=== PATIENT | male | born 1960 | race Caucasian/White ===

== ENCOUNTER 2017-12-24 07:50 | Inpatient (IN) | payer OTHER, MEDICARE ==
[~2017-12-24] VITALS: Ht 170.2 cm; Wt 62.0 kg
[~2017-12-24 07:50] MED LIST: Veetids 500500 MG PO
[2017-12-24 08:33] LABS: BASOPHILS PERCENT AUTO 0 % (0-2); EOSINOPHILS ABSOLUTE AUTO 0.02 K/mm3 (0.00-0.68); EOSINOPHILS PERCENT AUTO 0 % (0-6); IMMATURE GRAN ABSOLUTE AUTO 0.05 K/mm3 (0.00-0.10); IMMATURE GRAN PERCENT AUTO 1 % (0-1); LYMPHOCYTES ABSOLUTE AUTO 1.22 K/mm3 (0.84-5.20); LYMPHOCYTES PERCENT AUTO 13 % (21-46); MONOCYTES ABSOLUTE AUTO 0.84 K/mm3 (0.16-1.47); MONOCYTES PERCENT AUTO 9 % (4-13); Mean Platelet Volume 8.4 fL (9.1-12.4); NEUTROPHILS ABSOLUTE AUTO 7.41 K/mm3 (1.96-9.15); NEUTROPHILS PERCENT AUTO 78 % (41-73); Platelet Count 188 K/mm3 (150-400); RDW Coefficient Variation 10.4 % (11.7-14.2); RDW Standard Deviation 34.2 fL (35.1-46.3); Red Blood Cell Count 2.97 M/mm3 (4.30-5.90); White Blood Cell Count 9.54 K/mm3 (4.00-11.30)
[2017-12-24 08:54] LABS: Magnesium, Blood 1.3 mg/dL (1.6-2.4)
[2017-12-24 08:57] LABS: Alanine Aminotransfer (ALT/SGP 36 U/L (12-78); Albumin, Blood 2.8 g/dL (3.4-5.0); Albumin/Globulin Ratio 0.9 (0.8-1.8); Alk Phos 83 U/L (50-136); Anion Gap 11 mmol/L (6-16); Aspartate Aminotrans (AST/SGOT 56 U/L (12-37); Bilirubin, Total 1.3 mg/dL (0.1-1.0); Blood Urea Nitrogen 8 mg/dL (8-24); Bun/Creatinine Ratio 11.1 (12.0-20.0); CO2, Blood 25 mmol/L (21-32); Calcium, Blood 8.2 mg/dL (8.5-10.1); Chloride, Blood 73 mmol/L (98-108); Creatinine, Blood 0.72 mg/dL (0.60-1.20); Globulin, Blood 3.1 g/dL (2.2-4.0); Glomerular Filtration Rate >60 (60-); Glucose, Blood 92 mg/dL (70-99); Phosphorus, Blood 2.2 mg/dL (2.5-4.9); Potassium, Blood 1.9 mmol/L (3.5-5.5); Sodium, Blood 109 mmol/L (136-145); Total Protein, Blood 5.9 g/dL (6.4-8.2)
[2017-12-24 08:59] LABS: Hemoglobin 10.4 g/dL (13.5-17.5); Mean Corpuscular Volume 111 fL (80-100)
[2017-12-24 09:00] LABS: Mean Corpuscular HGB Conc 31.5 g/dL (31.5-36.5)
[2017-12-24 13:08] LABS: Anion Gap 11 mmol/L (6-16); Blood Urea Nitrogen 7 mg/dL (8-24); Bun/Creatinine Ratio 9.9 (12.0-20.0); CO2, Blood 24 mmol/L (21-32); Chloride, Blood 80 mmol/L (98-108); Creatinine, Blood 0.71 mg/dL (0.60-1.20); Glomerular Filtration Rate >60 (60-); Glucose, Blood 81 mg/dL (70-99); Potassium, Blood 2.3 mmol/L (3.5-5.5); Sodium, Blood 115 mmol/L (136-145)
[2017-12-24] MEDS ORDERED: AMLO5 PO (14:21)
[2017-12-24] MEDS ORDERED: HYDCHL25 PO (14:22)
[2017-12-24] MEDS ORDERED: LOSA50 PO (14:22)
[2017-12-24] MEDS ORDERED: TRAM50 PO (14:23)
[2017-12-24 16:58] LABS: Magnesium, Blood 1.7 mg/dL (1.6-2.4)
[2017-12-24 16:59] LABS: Anion Gap 11 mmol/L (6-16); Blood Urea Nitrogen 8 mg/dL (8-24); Bun/Creatinine Ratio 11.7 (12.0-20.0); CO2, Blood 22 mmol/L (21-32); Calcium, Blood 7.3 mg/dL (8.5-10.1); Chloride, Blood 87 mmol/L (98-108); Creatinine, Blood 0.68 mg/dL (0.60-1.20); Glomerular Filtration Rate >60 (60-); Glucose, Blood 84 mg/dL (70-99); Phosphorus, Blood 3.9 mg/dL (2.5-4.9); Sodium, Blood 120 mmol/L (136-145)
[2017-12-24 21:03] LABS: Anion Gap 11 mmol/L (6-16); Blood Urea Nitrogen 10 mg/dL (8-24); CO2, Blood 19 mmol/L (21-32); Calcium, Blood 7.6 mg/dL (8.5-10.1); Chloride, Blood 90 mmol/L (98-108); Creatinine, Blood 0.77 mg/dL (0.60-1.20); Glomerular Filtration Rate >60 (60-); Glucose, Blood 90 mg/dL (70-99); Potassium, Blood 3.3 mmol/L (3.5-5.5); Sodium, Blood 120 mmol/L (136-145)
[2017-12-25 00:52] LABS: Anion Gap 8 mmol/L (6-16); Blood Urea Nitrogen 8 mg/dL (8-24); Bun/Creatinine Ratio 10.7 (12.0-20.0); CO2, Blood 20 mmol/L (21-32); Calcium, Blood 7.1 mg/dL (8.5-10.1); Chloride, Blood 96 mmol/L (98-108); Creatinine, Blood 0.75 mg/dL (0.60-1.20); Glomerular Filtration Rate >60 (60-); Glucose, Blood 83 mg/dL (70-99); Potassium, Blood 3.1 mmol/L (3.5-5.5); Sodium, Blood 124 mmol/L (136-145)
[2017-12-25 05:16] LABS: BASOPHILS ABSOLUTE AUTO 0.01 K/mm3 (0.00-0.23); BASOPHILS PERCENT AUTO 0 % (0-2); EOSINOPHILS ABSOLUTE AUTO 0.02 K/mm3 (0.00-0.68); EOSINOPHILS PERCENT AUTO 0 % (0-6); Hematocrit 24.9 % (37.0-53.0); Hemoglobin 9.2 g/dL (13.5-17.5); IMMATURE GRAN ABSOLUTE AUTO 0.02 K/mm3 (0.00-0.10); IMMATURE GRAN PERCENT AUTO 0 % (0-1); LYMPHOCYTES ABSOLUTE AUTO 0.97 K/mm3 (0.84-5.20); LYMPHOCYTES PERCENT AUTO 14 % (21-46); MONOCYTES ABSOLUTE AUTO 0.62 K/mm3 (0.16-1.47); MONOCYTES PERCENT AUTO 9 % (4-13); Mean Corpuscular HGB 34.8 pg (26.0-34.0); Mean Corpuscular HGB Conc 36.9 g/dL (31.5-36.5); Mean Platelet Volume 8.8 fL (9.1-12.4); NEUTROPHILS ABSOLUTE AUTO 5.15 K/mm3 (1.96-9.15); NEUTROPHILS PERCENT AUTO 76 % (41-73); Platelet Count 188 K/mm3 (150-400); RDW Coefficient Variation 10.7 % (11.7-14.2); RDW Standard Deviation 36.9 fL (35.1-46.3); Red Blood Cell Count 2.64 M/mm3 (4.30-5.90); White Blood Cell Count 6.79 K/mm3 (4.00-11.30)
[2017-12-25 05:20] LABS: Mean Corpuscular Volume 94 fL (80-100)
[2017-12-25 05:34] LABS: Anion Gap 9 mmol/L (6-16); Blood Urea Nitrogen 8 mg/dL (8-24); Bun/Creatinine Ratio 10.7 (12.0-20.0); CO2, Blood 19 mmol/L (21-32); Calcium, Blood 7.1 mg/dL (8.5-10.1); Chloride, Blood 97 mmol/L (98-108); Creatinine, Blood 0.75 mg/dL (0.60-1.20); Glomerular Filtration Rate >60 (60-); Glucose, Blood 81 mg/dL (70-99); Phosphorus, Blood 1.7 mg/dL (2.5-4.9); Potassium, Blood 3.1 mmol/L (3.5-5.5); Sodium, Blood 125 mmol/L (136-145)
[2017-12-25 07:55] LABS: IMMATURE RETIC FRACTION 1.8 % (2.3-16.0); RETIC HGB EQUIVALENT 38.1 pg (28.20-36.60); RETICULOCYTE COUNT PERCENT 1.51 % (0.50-2.50)
[2017-12-25 08:36] LABS: Percent Saturation 40.3 % (20.0-50.0)
[2017-12-25 16:21] LABS: Anion Gap 9 mmol/L (6-16); Blood Urea Nitrogen 8 mg/dL (8-24); Bun/Creatinine Ratio 10.9 (12.0-20.0); CO2, Blood 19 mmol/L (21-32); Calcium, Blood 6.9 mg/dL (8.5-10.1); Chloride, Blood 99 mmol/L (98-108); Creatinine, Blood 0.74 mg/dL (0.60-1.20); Glomerular Filtration Rate >60 (60-); Glucose, Blood 75 mg/dL (70-99); Magnesium, Blood 1.4 mg/dL (1.6-2.4); Potassium, Blood 4.3 mmol/L (3.5-5.5); Sodium, Blood 127 mmol/L (136-145)
[2017-12-26 07:11] LABS: Hematocrit 25.6 % (37.0-53.0); Hemoglobin 9.2 g/dL (13.5-17.5)
[2017-12-26 07:29] LABS: Anion Gap 9 mmol/L (6-16); Blood Urea Nitrogen 6 mg/dL (8-24); Bun/Creatinine Ratio 8.6 (12.0-20.0); CO2, Blood 21 mmol/L (21-32); Calcium, Blood 7.3 mg/dL (8.5-10.1); Chloride, Blood 99 mmol/L (98-108); Glomerular Filtration Rate >60 (60-); Glucose, Blood 73 mg/dL (70-99); Magnesium, Blood 1.5 mg/dL (1.6-2.4); Phosphorus, Blood 1.8 mg/dL (2.5-4.9); Potassium, Blood 3.8 mmol/L (3.5-5.5); Sodium, Blood 129 mmol/L (136-145)
[2017-12-27 06:55] LABS: Anion Gap 9 mmol/L (6-16); Blood Urea Nitrogen 5 mg/dL (8-24); Bun/Creatinine Ratio 7.1 (12.0-20.0); CO2, Blood 24 mmol/L (21-32); Calcium, Blood 7.7 mg/dL (8.5-10.1); Chloride, Blood 93 mmol/L (98-108); Creatinine, Blood 0.71 mg/dL (0.60-1.20); Glomerular Filtration Rate >60 (60-); Glucose, Blood 85 mg/dL (70-99); Potassium, Blood 3.8 mmol/L (3.5-5.5); Sodium, Blood 126 mmol/L (136-145)
[2017-12-28 06:58] LABS: Anion Gap 8 mmol/L (6-16); Blood Urea Nitrogen 7 mg/dL (8-24); Bun/Creatinine Ratio 9.2 (12.0-20.0); CO2, Blood 26 mmol/L (21-32); Calcium, Blood 7.9 mg/dL (8.5-10.1); Chloride, Blood 94 mmol/L (98-108); Creatinine, Blood 0.76 mg/dL (0.60-1.20); Glomerular Filtration Rate >60 (60-); Glucose, Blood 77 mg/dL (70-99); Magnesium, Blood 1.5 mg/dL (1.6-2.4); Phosphorus, Blood 3.5 mg/dL (2.5-4.9); Potassium, Blood 4.1 mmol/L (3.5-5.5); Sodium, Blood 128 mmol/L (136-145)
[2017-12-28] MEDS ORDERED: CITA20 PO (08:42)
[2017-12-28] MEDS ORDERED: SODCHL1 PO (08:43)
[2017-12-28] MEDS ORDERED: MAGOXI400 PO (08:43)
== END 2017-12-28 11:14 | disposition home or self-care (01) | DRG 641 ==
LOC: DELPENDDIS → ER 07:50 → MEDS 10:10 → ICUW 10:10 → ICUE 11:28 → MEDS 11:32 → ICUE 12-25 08:05 → MEDS 12-25 08:56 → ENPENDDIS 12-28 08:00 → MEDS 12-28 11:14
PROVIDERS: Emergency Medicine; Hospitalist
DX: E87.1 Hypo-osmolality and hyponatremia (principal); F41.9 Anxiety disorder, unspecified; D64.9 Anemia, unspecified; E83.39 Other disorders of phosphorus metabolism; E83.42 Hypomagnesemia; E83.51 Hypocalcemia; E87.6 Hypokalemia; G47.9 Sleep disorder, unspecified; I10 Essential (primary) hypertension; F17.210 Nicotine dependence, cigarettes, uncomplicated
CPT/HCPCS: 36415; 36569; 80048; 80053; 82607; 82728; 82746; 82947; 83540; 83550; 83735; 84100; 85014; 85018; 85025; 85045; 87493; 93005; 93010; 96365; 96366; 96368; 99285-25; C1751; J1650; J3475; J3480; J7030; J7040; J7060

== ENCOUNTER 2021-01-10 09:48 | Inpatient (IN) | payer OTHER ==
[~2021-01-10] VITALS: Ht 170.2 cm; Wt 69.8 kg
[~2021-01-10 09:48] MED LIST changes: +AMLO5 PO; +CITA20 PO; +HYDCHL25 PO; +LOSA50 PO; +MAGOXI400 PO; +SODCHL1 PO; +TRAM50 PO
[2021-01-10 10:09] LABS: BASOPHILS ABSOLUTE AUTO 0.01 K/mm3 (0.00-0.23); BASOPHILS PERCENT AUTO 0 % (0-2); EOSINOPHILS ABSOLUTE AUTO 0.03 K/mm3 (0.00-0.68); EOSINOPHILS PERCENT AUTO 0 % (0-6); Hematocrit 28.7 % (37.0-53.0); Hemoglobin 9.9 g/dL (13.5-17.5); IMMATURE GRAN ABSOLUTE AUTO 0.03 K/mm3 (0.00-0.10); IMMATURE GRAN PERCENT AUTO 0 % (0-1); LYMPHOCYTES ABSOLUTE AUTO 1.52 K/mm3 (0.84-5.20); LYMPHOCYTES PERCENT AUTO 16 % (21-46); MONOCYTES ABSOLUTE AUTO 0.67 K/mm3 (0.16-1.47); MONOCYTES PERCENT AUTO 7 % (4-13); Mean Corpuscular HGB 33.2 pg (26.0-34.0); Mean Corpuscular HGB Conc 34.5 g/dL (31.5-36.5); Mean Corpuscular Volume 96 fL (80-100); Mean Platelet Volume 9.1 fL (9.1-12.4); NEUTROPHILS ABSOLUTE AUTO 7.33 K/mm3 (1.96-9.15); NEUTROPHILS PERCENT AUTO 77 % (41-73); Platelet Count 206 K/mm3 (150-400); RDW Coefficient Variation 18.6 % (11.7-14.2); RDW Standard Deviation 65.7 fL (35.1-46.3); Red Blood Cell Count 2.98 M/mm3 (4.30-5.90); White Blood Cell Count 9.59 K/mm3 (4.00-11.30)
[2021-01-10 10:39] LABS: Alanine Aminotransfer (ALT/SGP 17 U/L (12-78); Albumin, Blood 1.4 g/dL (3.4-5.0); Albumin/Globulin Ratio 0.3 (0.8-1.8); Alk Phos 118 U/L (50-136); Anion Gap 8 mmol/L (6-16); Aspartate Aminotrans (AST/SGOT 27 U/L (12-37); Bilirubin, Total 1.3 mg/dL (0.1-1.0); Blood Urea Nitrogen 16 mg/dL (8-24); Bun/Creatinine Ratio 14.2 (12.0-20.0); CO2, Blood 35 mmol/L (21-32); Calcium, Blood 6.9 mg/dL (8.5-10.1); Chloride, Blood 86 mmol/L (98-108); Creatinine, Blood 1.13 mg/dL (0.60-1.20); Globulin, Blood 4.5 g/dL (2.2-4.0); Glomerular Filtration Rate >60 (60-); Glucose, Blood 61 mg/dL (70-99); Potassium, Blood 2.7 mmol/L (3.5-5.5); Sodium, Blood 129 mmol/L (136-145); Total Protein, Blood 5.9 g/dL (6.4-8.2)
[2021-01-10 11:11] LABS: Thyroid Stimulating Hormone 6.94 uIU/mL (0.360-4.800)
[2021-01-10 11:20] LABS: Ethanol (Alcohol), Blood, Med <3 mg/dL; Magnesium, Blood 1.4 mg/dL (1.6-2.4)
[2021-01-10 14:20] LABS: Source, Urine Clean Catch
[2021-01-10 14:25] LABS: Appearance, Urine Hazy (Clear); Bilirubin, Urine Neg (Neg); Blood, Urine 3+ (Neg); Color, Urine Amber (P-Yellow); Glucose Qualitative, Urine Neg (Neg); Ketones, Urine 1+ (Neg); Leukocyte Esterase, Urine 3+ (Neg); Nitrite, Urine Neg (Neg); Protein, Urine 2+ (Neg); Urobilinogen, Urine 3+ (Normal); pH, Urine 6.5 (5.0-8.0)
[2021-01-10 14:32] LABS: Bacteria Many /hpf; Squamous Epithelial Cells Rare /hpf (Few); White Blood Cells, Urine 50-100 /hpf (0-5)
[2021-01-10 14:37] LABS: U Amphetamine Screen Not Detected; U Barbituate Screen Not Detected; U Benzodiazapine Screen Not Detected; U Buprenorphine Screen Not Detected; U Cannabinoids Screen DETECTED; U Cocaine Screen Not Detected; U Methadone Screen Not Detected; U Methamphetamine Screen Not Detected; U Opiates Screen Not Detected; U Oxycodone Screen Not Detected; U Phencyclidine Screen Not Detected; U Propoxyphene Screen Not Detected
[2021-01-10 15:24] LABS: SARS-Cov-2 (COVID-19) PCR, MMC NEGATIVE (NEGATIVE)
[2021-01-10 19:01] LABS: International Normalized Ratio 1.74; Prothrombin Time Results 17.6 Sec (9.7-11.5)
--- NOTE | 2021-01-10 19:45 | NUR ---
PT ARRIVAL PT ARRIVES VIA GURNEY FROM ER. WHILE MOVING TO OUR GURNEY, PT BEGAN MAKING PURPOSEFUL MOVEMENTS WITH UPPER EXTREMITIES TOWARD ETT. PT DID NOT OPEN EYES. PT NOT FOLLOWING VERBAL COMMANDS OR REDIRECTION. BILAT SOFT WRIST RESTRAINTS APPLIED FOR SAFETY. PT IS VERY PALE AND COOL TO TOUCH. VERSED AND NS INFUSING. PROPOFOL STARTED FOR SEDATION. PT REMAINS INTUBATED WITH VENT SETTINGS 16/400/5/90% WITH SPO2 >95%. OGT REPLACED DUE TO KINK SHOWN BY XRAY. CONNECTED TO INT SUCTION, BRIGHT RED DRAINAGE NOTED. BOWEL TONES ARE ACTIVE. GRIER REMAINS IN PLACE. FAINT RADIAL PULSES, DOPPLER PEDAL PULSES. PLAN FOR FISH FLIPPER TO TAKE PT FOR IVC FILTER.
[2021-01-10 20:47] LABS: CPK Creatine Kinase 81 U/L (39-308); Troponin I 0.045 ng/mL (0.000-0.040)
[2021-01-10 20:59] LABS: Base Excess Venous 12.8 mmol/L; Bicarbonate Venous 35.2 mmol/L (24.0-30.0); PCO2 Venous 49.2 mmHg (38-42); PO2 Venous 51.3 mmHg (38-42); pH Blood Venous 7.48 (7.34-7.37)
[2021-01-10 21:38] LABS: Anion Gap 12 mmol/L (6-16); Blood Urea Nitrogen 15 mg/dL (8-24); Bun/Creatinine Ratio 13.5 (12.0-20.0); CO2, Blood 31 mmol/L (21-32); Calcium, Blood 7.1 mg/dL (8.5-10.1); Chloride, Blood 88 mmol/L (98-108); Creatinine, Blood 1.11 mg/dL (0.60-1.20); Glomerular Filtration Rate >60 (60-); Glucose, Blood 141 mg/dL (70-99); Potassium, Blood 2.5 mmol/L (3.5-5.5); Sodium, Blood 131 mmol/L (136-145)
--- NOTE | 2021-01-11 00:10 | NUR ---
2300: SEWING MACHINE OPERATOR PLASTIC ZIPPER TEAM ARRIVES TO TAKE PT. 2350: PT BACK TO ROOM. PER SEWING MACHINE OPERATOR PLASTIC ZIPPER TEAM PT TOLERATED PROCEDURE WELL. INSERTION SITE R GROIN. TRANSPARENT DRESSING WITH OUTLINED DRAINAGE IN PLACE. SURROUNDING AREA SOFT TO PALPATION.
[2021-01-11 00:38] LABS: Hematocrit 20.5 % (37.0-53.0); Hemoglobin 6.9 g/dL (13.5-17.5)
[2021-01-11 03:30] LABS: BASOPHILS PERCENT AUTO 0 % (0-2); EOSINOPHILS ABSOLUTE AUTO 0.01 K/mm3 (0.00-0.68); EOSINOPHILS PERCENT AUTO 0 % (0-6); Hematocrit 20.3 % (37.0-53.0); IMMATURE GRAN ABSOLUTE AUTO 0.05 K/mm3 (0.00-0.10); IMMATURE GRAN PERCENT AUTO 1 % (0-1); LYMPHOCYTES ABSOLUTE AUTO 0.96 K/mm3 (0.84-5.20); LYMPHOCYTES PERCENT AUTO 9 % (21-46); MONOCYTES ABSOLUTE AUTO 0.45 K/mm3 (0.16-1.47); MONOCYTES PERCENT AUTO 4 % (4-13); Mean Corpuscular HGB 33.2 pg (26.0-34.0); Mean Corpuscular HGB Conc 34.5 g/dL (31.5-36.5); Mean Corpuscular Volume 96 fL (80-100); NEUTROPHILS ABSOLUTE AUTO 8.69 K/mm3 (1.96-9.15); NEUTROPHILS PERCENT AUTO 86 % (41-73); Platelet Count 113 K/mm3 (150-400); RDW Coefficient Variation 18.5 % (11.7-14.2); RDW Standard Deviation 64.4 fL (35.1-46.3); Red Blood Cell Count 2.11 M/mm3 (4.30-5.90); White Blood Cell Count 10.16 K/mm3 (4.00-11.30)
[2021-01-11 03:48] LABS: Alanine Aminotransfer (ALT/SGP 13 U/L (12-78); Albumin, Blood 2.1 g/dL (3.4-5.0); Albumin/Globulin Ratio 0.7 (0.8-1.8); Alk Phos 80 U/L (50-136); Anion Gap 4 mmol/L (6-16); Aspartate Aminotrans (AST/SGOT 22 U/L (12-37); Bilirubin, Total 1.4 mg/dL (0.1-1.0); Blood Urea Nitrogen 14 mg/dL (8-24); Bun/Creatinine Ratio 14.3 (12.0-20.0); CO2, Blood 35 mmol/L (21-32); Calcium, Blood 7.2 mg/dL (8.5-10.1); Chloride, Blood 91 mmol/L (98-108); Creatinine, Blood 0.98 mg/dL (0.60-1.20); Globulin, Blood 3.1 g/dL (2.2-4.0); Glomerular Filtration Rate >60 (60-); Glucose, Blood 170 mg/dL (70-99); Sodium, Blood 130 mmol/L (136-145); Total Protein, Blood 5.2 g/dL (6.4-8.2)
[2021-01-11 03:49] LABS: Troponin I 0.232 ng/mL (0.000-0.040)
--- NOTE | 2021-01-11 06:26 | NUR ---
SHIFT SUMMARY PT REMAINS INTUBATED, VENT SETTINGS 16/400/5/55%. LUNGS CONTINUE TO HAVE WHEEZE, Q4 DUONEBS ORDERED. PT RECEIVING PROPOFOL 40MCG/KG/MIN. 1 UNIT PRBC INFUSED THIS SHIFT DUE TO HGB <7. SECOND UNIT HAS NOT BEEN STARTED. OGT CONNECTED TO LOW INT SUCTION WITH SMALL AMOUNT OF BLOODY DRAINAGE. PT REMAINS VERY PALE, SKIN IS DRY AND FRAGILE. MAKES PURPOSEFUL MOVEMENTS BUT DOES NOT FOLLOW COMMANDS. URINE OUTPUT OF 450ML THIS SHIFT. R GROIN SITE REMAINS WNL, NO ADDITIONAL BLEEDING SINCE ARRIVAL FROM ARCHITECTURAL PRACTICE MANAGER. PT'S TEMP CONTINUED TO DECREASE, BEAR HUGGER PLACED. WILL REPORT TO ONCOMING RN.
[2021-01-11] MEDS ORDERED: AMLO5 PO (06:34)
[2021-01-11] MEDS ORDERED: LOSA50 PO (06:35)
[2021-01-11] MEDS ORDERED: FOLI1 PO (06:35)
[2021-01-11] MEDS ORDERED: MULTIPLE VITAM1 EACH PO (06:37)
[2021-01-11] MEDS ORDERED: B-1100 M1 PO (06:37)
[2021-01-11] MEDS ORDERED: TRAM50 PO (06:37)
[2021-01-11] MEDS ORDERED: ZINC OXIDE57 GM TOP (06:39)
[2021-01-11] MEDS ORDERED: Hydroxyzine HCl25 MG PO (06:40)
[2021-01-11] MEDS ORDERED: 1/2 NS 250ml250 ML (06:42)
[2021-01-11] MEDS ORDERED: HYDROCORTISONE28 G1 EXT (06:42)
[2021-01-11 12:05] LABS: Hematocrit 27.2 % (37.0-53.0); Hemoglobin 9.6 g/dL (13.5-17.5)
--- NOTE | 2021-01-11 12:15 | NUR ---
REASSESSMENT PT WAS EXTUBATED AROUND 1100 AFTER TOELRATING SPONTANEOUS MODE WITH PRESSURE OF 5/5 FOR AN HOUR. HE WAS EXTUBATED TO 4L/NC AND IS HOLDING SPO2 IN THE LOW 90S. HIS LUGNS ARE CLEAR, DIM IN THE BASES. HE WILL CLEAR HIS THROAT BUT DOESN'T LIKE TO COUGH BECAUSE HE SAYS HIS CHEST REALLY HURTS. PT WINCES WITH EVEN SLIGHT TOUCH TO HIS CHEST. PT ORIENTED TO EVENTS FROM YESTERDAY THAT LED TO HIM BEING HERE. PT DOESN'T RECALL EVENTS AND IS NOT RETAINING THE INFORMATION. CONTINUING TO REORIENT. PICC LINE PLACED THIS MORNING FOR LEVOPHED ADMINISTRATION PT WAS HYPOTENSIVE. AFTER PROPOFOL TURNED OFF AND PT EXTUBATED BP IS BETTER. URINE OUTPUT IS STILL LOW WITH ONLY 20ML OF URINE OVER THE LAST [address] ELIZALDE AWARE BUT SAYS TO TITRATE LEVOPHED TO MAP GREATER THAN 55MMHG SO LEVOPHED OFF CURRENTLY. PALCED ORDERS FOR SCD SINCE PT ISN'T ON HEPARIN, BUT VENOUS DUPLEX HASN'T BEEN DONE AND PT HAD BLOOD CLOTS IN HIS UPPER L LEG SO CONFIRMED WITH DR. ELIZALDE TO LEAVE SCD OFF FOR NOW. BLOOD TRANSFUSION COMPLETED AND H/H IMPROVED. DR. LEON GAVE CONSENT OVERNIGHT TO TRANSFUSE PT'S DAD COULDN'T BE REACHED. TRIED AGAIN THIS MORNING AND PHONE NUMBER IS DISCONNECTED. AFTER EXTUBATION PT SAID IT IS OK TO GIVE HIS ROOMMATE, PUSHPA, INFORMATION.
--- NOTE | 2021-01-11 12:36 | NUR ---
Echocardiogram completed
[2021-01-11 15:32] LABS: Magnesium, Blood 2.2 mg/dL (1.6-2.4); Phosphorus, Blood 3.3 mg/dL (2.5-4.9); Potassium, Blood 3.4 mmol/L (3.5-5.5)
[2021-01-11 15:33] LABS: Hematocrit 22.6 % (37.0-53.0); Hemoglobin 8.1 g/dL (13.5-17.5)
[2021-01-11 15:41] LABS: International Normalized Ratio 1.7; Prothrombin Time Results 17.2 Sec (9.7-11.5)
--- NOTE | 2021-01-11 16:48 | NUR ---
SHIFT SUMMARY PT WAS EXTUBATED TODAY AND HAS DONE WELL. HE REMAINS ON 4L/NC, AND SPO2 IS ABOUT 93% WITH THAT. PT OFTEN TAKES IT OFF AND HAS SPO2 ABOUT 88% WITHOUT IT. HE IS ALERT, ORIENTED TO HIMSELF AND THAT HE IS IN A HOSPITAL, BUT ISN'T SURE WHAT CITY OR YEAR AND ISN'T EVEN ABLE TO SAY WHICH CITY HE LIVES IN. HE MOANS FREQUENTLY, BUT WHEN ASKED WHAT IS WRONG HE ISN'T ABLE TO SAY. HE WILL SAY HE IS FINE, BUT THEN ASK FOR HELP WITH "SOMETHING," BUT ISN'T ABLE TO PUT INTO WORDS WHAT THAT SOMETHING IS. EVEN WITH PROMPTING HE HAS TROUBLE GETTING HIS THOUGHTS ACROSS. PT HAS A VERY WEAK COUGH AND WINCES WITH EVERY COUGH AND MOVEMENT, BUT WILL ONLY STATE HE IS IN A LITTLE PAIN. AFTER ASSESSING PT'S SWALLOW, CALLED DR. MORFIN AND GOT PT PAIN PILL TO TRY AND HELP WITH PAIN CONTROL. SR, SBP 90S, LEVOPHED HAS BEEN OFF SINCE THIS MORNING. URINE OUTPUT LOW, DR. ELIZALDE AWARE. RECEVIED LAST UNIT OF PRBC THIS SHIFT. NO SIGNS OF SIGNIFICANT BLEEDING NOTED THIS SHIFT. ATTEMPTED TO CONTACT PT'S FATHER AND HIS ROOMMATE TODAY WITHOUT ANY SUCCESS.
--- NOTE | 2021-01-11 19:15 | NUR ---
ASSUMPTION OF CARE PT IS AWAKE WHEN ENTERING THE ROOM, PARTICIPATES IN CONVERSATION AND MAKES EYE CONTACT. PT ON 6LPM VIA NC WITH SPO2 88-92%. PT REMINDED TO TAKE DEEP BREATHS THROUGH NOSE. PT FOLLOWS COMMANDS BUT NEEDS FREQUENT REMINDERS AND PT REPEATS THE SAME FEW QUESTIONS. TRANSPARENT DRESSING REMAINS IN PLACE ON R GROIN FROM IVC FILTER PLACED YESTERDAY, DRAINAGE APPEARS DRY AND FROM PREVIOUS NIGHT AND THROUGHOUT DAY. DRESSING INTACT. SEE SHIFT ASSESSMENT.
[2021-01-12 00:40] LABS: Hematocrit 23.6 % (37.0-53.0); Hemoglobin 8.4 g/dL (13.5-17.5)
[2021-01-12 05:29] LABS: BASOPHILS ABSOLUTE AUTO 0.01 K/mm3 (0.00-0.23); BASOPHILS PERCENT AUTO 0 % (0-2); EOSINOPHILS ABSOLUTE AUTO 0.05 K/mm3 (0.00-0.68); EOSINOPHILS PERCENT AUTO 1 % (0-6); Hematocrit 22.4 % (37.0-53.0); Hemoglobin 7.7 g/dL (13.5-17.5); IMMATURE GRAN ABSOLUTE AUTO 0.06 K/mm3 (0.00-0.10); IMMATURE GRAN PERCENT AUTO 1 % (0-1); LYMPHOCYTES ABSOLUTE AUTO 1.05 K/mm3 (0.84-5.20); LYMPHOCYTES PERCENT AUTO 11 % (21-46); MONOCYTES ABSOLUTE AUTO 0.36 K/mm3 (0.16-1.47); MONOCYTES PERCENT AUTO 4 % (4-13); Mean Corpuscular HGB 31.2 pg (26.0-34.0); Mean Corpuscular HGB Conc 34.4 g/dL (31.5-36.5); Mean Platelet Volume 9.8 fL (9.1-12.4); NEUTROPHILS ABSOLUTE AUTO 7.78 K/mm3 (1.96-9.15); NEUTROPHILS PERCENT AUTO 84 % (41-73); Platelet Count 76 K/mm3 (150-400); RDW Coefficient Variation 20.1 % (11.7-14.2); RDW Standard Deviation 66.4 fL (35.1-46.3); Red Blood Cell Count 2.47 M/mm3 (4.30-5.90); White Blood Cell Count 9.31 K/mm3 (4.00-11.30)
[2021-01-12 05:30] LABS: Mean Corpuscular Volume 91 fL (80-100)
[2021-01-12 05:44] LABS: Alanine Aminotransfer (ALT/SGP 13 U/L (12-78); Albumin, Blood 2.3 g/dL (3.4-5.0); Alk Phos 56 U/L (50-136); Anion Gap 6 mmol/L (6-16); Aspartate Aminotrans (AST/SGOT 24 U/L (12-37); Bilirubin, Total 1.9 mg/dL (0.1-1.0); Blood Urea Nitrogen 11 mg/dL (8-24); Bun/Creatinine Ratio 12.6 (12.0-20.0); CO2, Blood 30 mmol/L (21-32); Calcium, Blood 6.9 mg/dL (8.5-10.1); Chloride, Blood 97 mmol/L (98-108); Creatinine, Blood 0.87 mg/dL (0.60-1.20); Globulin, Blood 2.4 g/dL (2.2-4.0); Glomerular Filtration Rate >60 (60-); Glucose, Blood 79 mg/dL (70-99); Magnesium, Blood 1.5 mg/dL (1.6-2.4); Potassium, Blood 3.7 mmol/L (3.5-5.5); Sodium, Blood 133 mmol/L (136-145); Total Protein, Blood 4.7 g/dL (6.4-8.2)
--- NOTE | 2021-01-12 06:55 | NUR ---
SHIFT SUMMARY PT REMAINS ALERT THROUGHOUT SHIFT, REPEATS THE SAME QUESTIONS AND PHRASES SUCH "WHAT HAPPENED", "I KEEP COUGHING", "I CAN'T COUGH WHEN I HAVE MY MASK ON". REORIENTED PT NUMEROUS TIMES BUT PT CONTINUES TO ASK THE SAME QUESTIONS. PT ON 8L NONREBREATHER. BOWEL TONES HYPOACTIVE. GRIER DRAINING YELLOW URINE. WILL REPORT TO ONCOMING RN.
--- NOTE | 2021-01-12 12:08 | NUR ---
REASSESSMENT PT HAS DONE WELL THIS MORNING, GETTING UP TO THE CHAIR WITH 2 PERSON ASSIST. HE IS A LITTLE MORE ORIENTED THAN YESTERDAY, BUT STILL HAS A POOR SHORT TERM MEMORY. HIS LUNGS ARE CLEAR IN THE UPPERS, FEW CRACKLES IN THE BASES. COUGH CONTINUES TO BE WEAK. MEDICATING FOR PAIN TO TRY AND ENCOURAGE STRONGER COUGH WELL ENCOURAGING FLUTTER VALVE USE. SR, BPS TABLE. GRIER DRAINIG CL YELLOW URINE. PT DRINKING WATER WITHOUT ANY SIGNS OF ASPIRATION SO DIET ADVANCED. HE ATE A COUPLE BITES OF LUNCH BEFORE SAYING HE WAS DONE. PT'S ROOMMATE CALLED TODAY WELL PT'S DAD. BOTH WERE UPDATED.
[2021-01-12 16:12] LABS: Hematocrit 25.9 % (37.0-53.0); Hemoglobin 8.9 g/dL (13.5-17.5)
--- NOTE | 2021-01-12 17:37 | NUR ---
SHIFT SUMMARY PT SPENT THE MORNING SITTING UP IN THE CHAIR, THEN WENT BACK TO BED AFTER LUNCH AND WAS ABLE TO SLEEP FOR A COUPLE HOURS. THIS EVENING HIS MEMORY SEEMS A LITTLE BIT BETTER AT RETAINING THE INFORMATION HE IS BEING TOLD. WHEN HE IS TOLD ABOUT HIS CARDIAC ARREST HE RESPONDED THAT "THERE'S ONLY ONE THING TO DO NOW, QUIT DRINKING," THEN EXPRESSED A FEW MORE TIMES THAT HE KNOWS HE NEEDS TO QUIT. HE CONTINUES TO BE PAINFUL WITH MOVING BUT HE IS HAVING AN EASIER TIME EXPRESSING HIMSELF. HIS COUGH IS STILL VERY WEAK, BUT HE IS GOOD AT USING THE FLUTTER VALVE WHEN PROMPTED. DRESSING TO HIS R GROIN SITE CHANGED IT APPEARED TO HAVE OOZED A LITTLE BIT WITH DRAINAGE OUTSIDE OF THE MARKED LINES FROM CLINICAL BUSINESS ANALYST. NO OOZING NOTED WHEN THE DRESSING WAS OFF. PICC LINE DRESSING CHANGED WELL SINCE THERE WAS GAUZE UNDER IT. PICC LINE CAME OUT 2 CM WITH DRESSING CHANGE. CHARGE NURSE NOTIFIED AND PICC NURSE TO EVALUATE IT TOMORROW. NO OTHER CHANGES FROM EARLIER ASSESSMENTS. CONTINUING TO MONITOR.
--- NOTE | 2021-01-12 18:18 | NUR ---
PT TRANSFERRING TO PCU 9. REPORT GIVEN TO PCU NURSE. PT TRANSFERRED TO PCU VIA WC. ALL BELONGINGS SENT WITH PT.
--- NOTE | 2021-01-12 18:40 | NUR ---
ASSUMPTION OF CARE NOTE/TRANSFER NOTE PT TRANSFERED TO PCU 9 APPROX. 1820. PT SETTLED INTO ROOM BY THIS NURSE WELL EJ COOPER RN. PT NOW ON TELE AND IS ST 103 PER TELE REPORT, SPO2 >90% VIA 4L NC, VITAL SIGNS STABLE. PT IS ALERT TO SELF AND PLACE BUT HAS LIMITED SHORT TERM MEMORY AND NEEDS REORIENTED TO SITUATION AND TIME. RIGHT PICC LINE IS INFUSING FLUIDS PER EMAR. LEFT IV IS SALINE LOCKED. GRIER CATHETER IS IN PLACE AND DRAINING CLEAR YELLOW OUTPUT. PT WAS A 2 PERSON SBA W/ WALKER FROM WHEELCHAIR TO BED. PT NOW WATCHING TV WITH DINNER TRAY IN FRONT OF HIM. HE REPORTED NO APPETITE AT THIS TIME BUT WILL WORK ON TRAY LATER. CALL LIGHT IN REACH. WILL CONTINUE TO MONITOR UNTIL REPORT GIVEN.
[2021-01-13 04:05] LABS: BASOPHILS ABSOLUTE AUTO 0.02 K/mm3 (0.00-0.23); BASOPHILS PERCENT AUTO 0 % (0-2); EOSINOPHILS PERCENT AUTO 1 % (0-6); Hematocrit 27.2 % (37.0-53.0); Hemoglobin 9.4 g/dL (13.5-17.5); IMMATURE GRAN ABSOLUTE AUTO 0.07 K/mm3 (0.00-0.10); IMMATURE GRAN PERCENT AUTO 1 % (0-1); LYMPHOCYTES ABSOLUTE AUTO 1.26 K/mm3 (0.84-5.20); LYMPHOCYTES PERCENT AUTO 10 % (21-46); MONOCYTES ABSOLUTE AUTO 0.47 K/mm3 (0.16-1.47); MONOCYTES PERCENT AUTO 4 % (4-13); Mean Corpuscular HGB 31.6 pg (26.0-34.0); Mean Corpuscular HGB Conc 34.6 g/dL (31.5-36.5); Mean Corpuscular Volume 92 fL (80-100); Mean Platelet Volume 10.8 fL (9.1-12.4); NEUTROPHILS ABSOLUTE AUTO 10.69 K/mm3 (1.96-9.15); NEUTROPHILS PERCENT AUTO 85 % (41-73); NRBC ABSOLUTE 0.02 K/mm3 (0.00-0.02); NRBC Auto 0.2 /100 WBC (0.0-0.2); Platelet Count 91 K/mm3 (150-400); RDW Coefficient Variation 19.2 % (11.7-14.2); RDW Standard Deviation 64.2 fL (35.1-46.3); Red Blood Cell Count 2.97 M/mm3 (4.30-5.90); White Blood Cell Count 12.61 K/mm3 (4.00-11.30)
[2021-01-13 04:18] LABS: Anion Gap 6 mmol/L (6-16); Blood Urea Nitrogen 10 mg/dL (8-24); Bun/Creatinine Ratio 10.7 (12.0-20.0); CO2, Blood 31 mmol/L (21-32); Calcium, Blood 7.5 mg/dL (8.5-10.1); Chloride, Blood 95 mmol/L (98-108); Creatinine, Blood 0.93 mg/dL (0.60-1.20); Glomerular Filtration Rate >60 (60-); Glucose, Blood 70 mg/dL (70-99); Magnesium, Blood 1.7 mg/dL (1.6-2.4); Potassium, Blood 4.2 mmol/L (3.5-5.5); Sodium, Blood 132 mmol/L (136-145)
--- NOTE | 2021-01-13 05:45 | NUR ---
SHIFT SUMMARY PT IS ALERT WITH SOME CONFUSION. THERE HAVE BEEN NO ACUTE CHANGES.PT DENIES CARDIAC CHEST PAIN, HAS PAIN FROM COMPRESSIONS. VSS AND ON 1L NC. PT DENIES SOB BUT REPORTS PHLEGM THAT HE IS UNABLE COUGH UP. PT HAS BRUISING AND SCABS T/O BODY. HIGH FALL RISK WITH BED ALARM ACTIVATED. PT HAS GRIER CATHETER THAT IS IN PLACE AND DRAINING MCKENZIE COLORED URINE. PT IS ABLE TO HELP TURN SELF AND TOLERATES WELL. CALL LIGHT IS WITHIN REACH. WILL CONTINUE TO MONITOR.
--- NOTE | 2021-01-13 20:40 | NUR ---
ASSUMED CARE PT IS ALERT AND ORIENTED. PT'S VITALS ARE STABLE. DENIES CARDIAC/CHEST PAIN/PRESSURE. PT REPORTS HURTING T/O BODY AND IS MEDICATED PER EMAR. WAS GIVEN MED CRUSHED WITH APPLESAUCE. REPORTS NOT HAVING APPETITE. PT REFUSED REPOSITIONING AND ORAL CARE AT THE TIME. CALL LIGHT IS WITHIN REACH. WILL CONTINUE TO MONITOR.
--- NOTE | 2021-01-14 06:50 | NUR ---
SHIFT SUMMARY PT WAS ALERT AND ORIENTED T/O MOST OF THE NIGHT THIS MORNING HE AWOKE AND DID NOT KNOW WHERE HE WAS OR WHO THE STAFF WAS. PT'S VITALS HAVE BEEN STABLE AND HAS BEEN ON 2L NC WITH SATS ABOVE 92%. PT REPORTS PAIN BUT DID NOT WANT ANY MEDICATION COVERAGE. PT'S ABDOMEN IS VERY DISTENDED AND FIRM, HE STATES THAT IT IS UNCOMFORTABLE. CALL LIGHT IS WITHIN REACH BUT DOES NOT USE IT HE WILL JUST YELL OUT. WILL CONTINUE TO MONITOR.
[2021-01-14 10:53] LABS: BASOPHILS ABSOLUTE AUTO 0.02 K/mm3 (0.00-0.23); BASOPHILS PERCENT AUTO 0 % (0-2); EOSINOPHILS PERCENT AUTO 0 % (0-6); Hematocrit 28.3 % (37.0-53.0); Hemoglobin 9.8 g/dL (13.5-17.5); IMMATURE GRAN ABSOLUTE AUTO 0.08 K/mm3 (0.00-0.10); IMMATURE GRAN PERCENT AUTO 1 % (0-1); LYMPHOCYTES ABSOLUTE AUTO 0.87 K/mm3 (0.84-5.20); LYMPHOCYTES PERCENT AUTO 7 % (21-46); MONOCYTES ABSOLUTE AUTO 0.44 K/mm3 (0.16-1.47); MONOCYTES PERCENT AUTO 3 % (4-13); Mean Corpuscular HGB Conc 34.6 g/dL (31.5-36.5); Mean Corpuscular Volume 93 fL (80-100); Mean Platelet Volume 10.9 fL (9.1-12.4); NEUTROPHILS ABSOLUTE AUTO 11.93 K/mm3 (1.96-9.15); NEUTROPHILS PERCENT AUTO 90 % (41-73); Platelet Count 113 K/mm3 (150-400); RDW Coefficient Variation 19.1 % (11.7-14.2); RDW Standard Deviation 63.5 fL (35.1-46.3); Red Blood Cell Count 3.06 M/mm3 (4.30-5.90); White Blood Cell Count 13.34 K/mm3 (4.00-11.30)
[2021-01-14 11:06] LABS: Alanine Aminotransfer (ALT/SGP 22 U/L (12-78); Albumin/Globulin Ratio 0.6 (0.8-1.8); Alk Phos 93 U/L (50-136); Anion Gap 8 mmol/L (6-16); Aspartate Aminotrans (AST/SGOT 48 U/L (12-37); Bilirubin, Total 1.7 mg/dL (0.1-1.0); Blood Urea Nitrogen 11 mg/dL (8-24); Bun/Creatinine Ratio 10.7 (12.0-20.0); CO2, Blood 28 mmol/L (21-32); Calcium, Blood 7.9 mg/dL (8.5-10.1); Chloride, Blood 96 mmol/L (98-108); Creatinine, Blood 1.03 mg/dL (0.60-1.20); Globulin, Blood 3.2 g/dL (2.2-4.0); Glomerular Filtration Rate >60 (60-); Glucose, Blood 70 mg/dL (70-99); Sodium, Blood 132 mmol/L (136-145); Total Protein, Blood 5.2 g/dL (6.4-8.2)
--- NOTE | 2021-01-14 15:35 | NUR ---
PT PLACED ON TABLE IN PRONE POSITION. PT STARTED HAVING LIQUID BROWN EMESIS, TRANSFERRED BACK TO BED. PT SOB WITH AUDIBLE RHONCHI, PLACED ON 15 L NRB, SPO2 86-88%. DR SALCEDO EVALUATED PT, WILL ORDER CHEST X RAY. PT TRANSFERRED BACK TO PCU 9, REPORT TO AARON RIGGS.
--- NOTE | 2021-01-14 16:23 | NUR ---
1530-Right UA PICC-3L out by 9cm, PICC RN made aware, chest X-ray done for placement verification and PICC RN stated PICC placement is okay.
--- NOTE | 2021-01-14 18:23 | NUR ---
0700-Rec'd pt this morning, alert to self only and confused. VSS stable, afebrile, SR on the monitor. Upon assessment, pt is pale and dusky, capillary refill > 3 seconds in both hands/fingers. Pt has poor appetite and unable to take all his PO medications because of emesis after taking meds. Pt was taking [facility] the [facility] for his procedure but was reschedule due to emesis and concerns for aspiration, chest x-ray done. Pt's abdomin is distended, firm anf ascites, Dr. Segura aware. Pt occasionally c/o urgency and need to urinate despite coude catheter in place, catheter was irrigated this shift with no improvement. Pt had total of 230 urine output this shift, will endorse pt care to slot shift supervisor RN.
[2021-01-15 05:09] LABS: BASOPHILS ABSOLUTE AUTO 0.01 K/mm3 (0.00-0.23); BASOPHILS PERCENT AUTO 0 % (0-2); EOSINOPHILS ABSOLUTE AUTO 0.01 K/mm3 (0.00-0.68); EOSINOPHILS PERCENT AUTO 0 % (0-6); Hematocrit 27.7 % (37.0-53.0); Hemoglobin 9.3 g/dL (13.5-17.5); IMMATURE GRAN ABSOLUTE AUTO 0.06 K/mm3 (0.00-0.10); IMMATURE GRAN PERCENT AUTO 1 % (0-1); LYMPHOCYTES ABSOLUTE AUTO 1.16 K/mm3 (0.84-5.20); LYMPHOCYTES PERCENT AUTO 9 % (21-46); MONOCYTES ABSOLUTE AUTO 0.75 K/mm3 (0.16-1.47); MONOCYTES PERCENT AUTO 6 % (4-13); Mean Corpuscular HGB 31.5 pg (26.0-34.0); Mean Corpuscular HGB Conc 33.6 g/dL (31.5-36.5); Mean Corpuscular Volume 94 fL (80-100); Mean Platelet Volume 9.9 fL (9.1-12.4); NEUTROPHILS ABSOLUTE AUTO 10.39 K/mm3 (1.96-9.15); NEUTROPHILS PERCENT AUTO 84 % (41-73); Platelet Count 127 K/mm3 (150-400); RDW Coefficient Variation 19.6 % (11.7-14.2); RDW Standard Deviation 65.8 fL (35.1-46.3); Red Blood Cell Count 2.95 M/mm3 (4.30-5.90); White Blood Cell Count 12.38 K/mm3 (4.00-11.30)
[2021-01-15 05:31] LABS: Alanine Aminotransfer (ALT/SGP 21 U/L (12-78); Albumin, Blood 2.1 g/dL (3.4-5.0); Albumin/Globulin Ratio 0.7 (0.8-1.8); Alk Phos 99 U/L (50-136); Anion Gap 8 mmol/L (6-16); Aspartate Aminotrans (AST/SGOT 53 U/L (12-37); Bilirubin, Total 1.7 mg/dL (0.1-1.0); Blood Urea Nitrogen 15 mg/dL (8-24); Bun/Creatinine Ratio 12.6 (12.0-20.0); CO2, Blood 28 mmol/L (21-32); Calcium, Blood 8.2 mg/dL (8.5-10.1); Chloride, Blood 97 mmol/L (98-108); Creatinine, Blood 1.19 mg/dL (0.60-1.20); Globulin, Blood 3.1 g/dL (2.2-4.0); Glomerular Filtration Rate >60 (60-); Glucose, Blood 58 mg/dL (70-99); Potassium, Blood 5.1 mmol/L (3.5-5.5); Sodium, Blood 133 mmol/L (136-145); Total Protein, Blood 5.2 g/dL (6.4-8.2)
--- NOTE | 2021-01-15 06:56 | NUR ---
SHIFT SUMMARY PATIENT IS RESTING IN BED COMFORTABLY. BED IS IN LOW POSITION. BED ALARM IS ON. CALL LIGHT IS IN REACH. VITAL WERE STABLE DURING THE NIGHT. PATIENT IS CONFUSED. HE KEPT TAKING HIS OXYGEN OFF AND WAS REMINDED TO LEAVE IT ON. HE WAS NON COMPLIANT WITH SOME CARE WHEN HE WAS EDUCATED HE WAS THEN COMPLIANT. PATIENT WAS BEDREST AND MOVED AROUND IN BED. NO COMPLAINTS OF PAIN. NO ACUTE EVENTS DURING THE NIGHT. WILL CONTINUE TO MONITOR. REPORT GIVEN TO DAY SHIFT RN.
--- NOTE | 2021-01-15 07:23 | NUR ---
0722-Floorleader called Dr. Segura via telephone and made her aware of pt's potassium level of 5.1 and he has scheduled potassium chloride at 0900, she said she will d/c it and to hold all PO meds since pt is unable to keep any food/medication in his stomach, orders noted, will continue to monitor and assess pt.
[2021-01-15 07:58] LABS: Albumin, Blood 2.1 g/dL (3.4-5.0)
[2021-01-15 14:10] LABS: HEPARIN INDUCED PLATELET AB 0.119 OD (0.000-0.400)
--- NOTE | 2021-01-15 15:20 | NUR ---
Reviewed chart and discussed case with Primary RN Emily. Pt confused and was unable to participate with PT today. Pt resting in bed with his eyes closed upon arrival. Pt wakes to gentle verbal stimuli. Pt is pleasantly confused and A&O to self and family. Pt appears lethargic. Pt continuously drifts off to sleep then wakes and engages in non sensical conversation. Ended visit to allow Pt to rest. Spoke with Dr Segura and discussed case. Attempted to contact father listed on face sheet. Phone number listed is not a valid phone number. Called and spoke with Pt's friend/roomate Carl. Provided update and offered therapeutic listening. Carl will call this RN back with contact information of Pt's father. Father is currently in [place] and lives in [place]. Obtained Father Sukhi's phone number. [phone] Plan to contact family for advanced care planning. Palliative Care will remain available. PPS 30%
--- NOTE | 2021-01-15 15:47 | NUR ---
1000-Left nares NG tube inserted and connected to LIS with bile color drainage, pt was fighting at the time of placement, bilateral soft wrist restraints and mitts ordered and applied for pt's safety.
--- NOTE | 2021-01-15 18:32 | NUR ---
SHIFT NOTES 0710-Rec'd pt, remains same compared to previous day, sometimes alert to self but confused and disoriented x4, VSS, afebrile, SpO2 OF 90-93% on 3LNC. Lung sounds are rhonchi and coarse bilaterally, and croupy/congested cough, pt is getting breathing treatment prn. Pt is scheduled for a US guided paracentesis tomorrow 01/16/21, Lovenox injection will be held tonight and on the day of procedure, will endorse this information to ward clerk RN. NG tube to LIS working well with 350ml bile color output.
--- NOTE | 2021-01-15 18:41 | NUR ---
Regarding PICC LINE 0930-Hemstitcher changed right UA PICC Line dressing and noted the catheter length was out by 14cm, made PCU charge entry specialist aware and abdominal x-ray was done which stated the position of the PICC Line was brachiocephalic vein, Dr. Segura made aware and PICC team notified by charge entry specialist, currently PICC line is to be used as midline per protocol/guidelines.
--- NOTE | 2021-01-16 07:15 | NUR ---
SHIFT SUMMARY PATIENT IS RESTING COMFORTABLY IN BED. BED IS IN LOW POSIITON. CALL LIGHT IS IN REACH. BED ALARM IS ON. VITALS WERE STABLE DURING THE NIGHT. THE PATIENT DID HAVE A LOW BLOOD SUGAR AT 0000 IT WAS CORRECTED WITH SOME D50. THE PATIENT HAD ANOTHER 0640 HIS BLOOD SUGAR WAS LOW AND WAS CORRECTED AGAIN. DISSCUSED WITH CHARGE ABOUT STARTING FLUID AND CONCERNS OF ASCITES AND CONGESTION IN HIS LUNGS. RAIL LAYER TO CONTINUE TO FOLLOW UP ON THE BLOOD SUGAR. THE PATIENT IS STILL RESTRAINED FOR TRYING TO PULL ON HIS LINES. PATIENT HAS VERY POOR PERFUSION IN HIS HANDS. HE IS ON 3L NC SATURATING ABOVE 90%. WILL CONTINUE TO MONITOR. PASSED OF IN REPORT THE BLOOD SUGAR NEEDS TO BE RECHECKED AFTER CORRECTING HIS BLOOD SUGAR THIS AM. REPORT WAS ALSO GIVEN TO DAY SHIFT RN.
[2021-01-16 11:41] LABS: Automated BF WBC Count 0.078 K/mm3 (0-999); Body Fluid WBC Count 78 /mm3 (0-999)
[2021-01-16 11:45] LABS: Hematocrit 26.8 % (37.0-53.0); Hemoglobin 8.7 g/dL (13.5-17.5); Mean Corpuscular HGB 31.4 pg (26.0-34.0); Mean Corpuscular HGB Conc 32.5 g/dL (31.5-36.5); Mean Corpuscular Volume 97 fL (80-100); Mean Platelet Volume 10.3 fL (9.1-12.4); Platelet Count 141 K/mm3 (150-400); Red Blood Cell Count 2.77 M/mm3 (4.30-5.90); White Blood Cell Count 13.74 K/mm3 (4.00-11.30)
[2021-01-16 12:01] LABS: Albumin, Body Fluid 0.4 g/dL
[2021-01-16 12:07] LABS: Lactate Dehydrogenase, Body Fl 110 U/L
[2021-01-16 12:07] LABS: Albumin, Blood 1.9 g/dL (3.4-5.0); Albumin/Globulin Ratio 0.5 (0.8-1.8); Calcium, Blood 7.7 mg/dL (8.5-10.1); Creatinine, Blood 1.46 mg/dL (0.60-1.20); Globulin, Blood 3.5 g/dL (2.2-4.0); Magnesium, Blood 1.6 mg/dL (1.6-2.4); Percent Saturation 58.3 % (20.0-50.0); Potassium, Blood 4.6 mmol/L (3.5-5.5); Total Protein, Blood 5.4 g/dL (6.4-8.2)
[2021-01-16 12:09] LABS: RBC Count, Body Fluid 7 /mm3 (0-0)
[2021-01-16 12:17] LABS: Appearance, Body Fluid Clear (Clear); Color, Body Fluid L Yellow (None-Yellow); Total Cell Count, Body Fluid 100
--- NOTE | 2021-01-16 12:42 | NUR ---
Case Conference Note Reviewed chart and discussed case with Primary RN Asya. Pt remains confused and had paracentesis this AM. No new concerns reported at this time. Called and left message with Pt's father Sukhi with request for a return phone call. Called and left message with Pt's Aunt Viktoriya with request for a return phone call. Called and spoke with Pt's friend/roomate Waleska. Provided update and discussed the importance of family contact hospital staff for future decision making. Father Sukhi Roberts [phone] Aunt Katerin [phone] Palliative Care will remain available
--- NOTE | 2021-01-16 15:37 | NUR ---
Spiritual care visit conducted. Patient immediately tells me that he is being held against his will and that "they are performing tests" on him for [employer]. This is all happening because someone is angry at him and he needs help to escape. He also explains that he would quit drinking if [employer] would give him a job. I reassure him to person and place and to the kindness and pure intentions of the hospital staff to help make him well. I provide therapeutic listening, a calming presence and anxiety containment. Patient responds well and shows signs of increased peace.
--- NOTE | 2021-01-16 18:13 | NUR ---
0710-Rec'd pt this morning, remains confused, VSS, afebrile, reoriented pt to person, staff and facility. Pt went for scheduled Paracentesis and 2.3L fluid was removed per Ultrasound RN, pt's urine output improved with 200ml this shift, left nare NG tube had 10ml output, see I&O's for details, will endorse pt care to bottled beverage inspector RN.
--- NOTE | 2021-01-17 07:42 | NUR ---
Ethics consultation request processed. Medical history, case details and prognostic factors reviewed with the ordering provider. The principal recently decompensated, was resuscitated, and is now being acutely managed. He is not requiring invasive airway support or other aggressive forms of stabalizing treatment. He is suffering from hepatic injury and large volume ascites secondary to unmoderated consumption. Ian is severly confused with etiology undetermined, and is being attended to with soft restraints to mitigate risk. His recovery potential is unclear, and it is too early diagnostically to conclude that a full de-escalation of care would be the most responsible path. The consensus of the clinical stakeholders (in light of his dire and tenous condition) is that chest compressions and intubation would be of limited medical benefit or utility, and therefore a code status of DNR / DNI is ethically and medically the most suitable option. I explained this to the principals aunt, who consented. I asked Dr Fonseca to alter his code status accordingly. Thank you for this consult. Silvio Mcdaniel ThD
[2021-01-17 10:39] LABS: Hematocrit 26.1 % (37.0-53.0); Hemoglobin 8.5 g/dL (13.5-17.5); Mean Corpuscular HGB 31.3 pg (26.0-34.0); Mean Corpuscular HGB Conc 32.6 g/dL (31.5-36.5); Mean Corpuscular Volume 96 fL (80-100); Mean Platelet Volume 10.1 fL (9.1-12.4); Platelet Count 108 K/mm3 (150-400); RDW Coefficient Variation 20.3 % (11.7-14.2); RDW Standard Deviation 69.3 fL (35.1-46.3); Red Blood Cell Count 2.72 M/mm3 (4.30-5.90); White Blood Cell Count 8.92 K/mm3 (4.00-11.30)
[2021-01-17 11:14] LABS: Alanine Aminotransfer (ALT/SGP 14 U/L (12-78); Albumin, Blood 1.8 g/dL (3.4-5.0); Albumin/Globulin Ratio 0.6 (0.8-1.8); Alk Phos 79 U/L (50-136); Anion Gap 5 mmol/L (6-16); Aspartate Aminotrans (AST/SGOT 30 U/L (12-37); Bilirubin, Total 0.9 mg/dL (0.1-1.0); Blood Urea Nitrogen 17 mg/dL (8-24); Bun/Creatinine Ratio 14.8 (12.0-20.0); CO2, Blood 32 mmol/L (21-32); Calcium, Blood 7.7 mg/dL (8.5-10.1); Chloride, Blood 102 mmol/L (98-108); Creatinine, Blood 1.15 mg/dL (0.60-1.20); Globulin, Blood 3.1 g/dL (2.2-4.0); Glomerular Filtration Rate >60 (60-); Glucose, Blood 75 mg/dL (70-99); Sodium, Blood 139 mmol/L (136-145); Total Protein, Blood 4.9 g/dL (6.4-8.2)
--- NOTE | 2021-01-17 17:59 | NUR ---
Review of pt prognsosi and needs. plan is tomorrow review with physician and family. Suggest hospice care.
--- NOTE | 2021-01-17 18:46 | NUR ---
0730-Rec'd pt, alert to self and also confused. VSS, lungs are much better today, clear to diminished in the bases. Abdominal ascites appears slightly better and pt does not c/o urgency and need to urinate this shift. Left nare NG tube still to LIS with no output. Pt's Joana, called and spoke to Dr. TY for dedtailed information about pt's condition. Per Ethics committee, the nurses are not suppose to give information to Marie's room mate, will endorse this to chayito rojas RN.
[2021-01-18 06:33] LABS: Hemoglobin 9.3 g/dL (13.5-17.5); Mean Corpuscular HGB 32.1 pg (26.0-34.0); Mean Corpuscular HGB Conc 33.2 g/dL (31.5-36.5); Mean Corpuscular Volume 97 fL (80-100); Platelet Count 122 K/mm3 (150-400); RDW Coefficient Variation 20.3 % (11.7-14.2); RDW Standard Deviation 70.1 fL (35.1-46.3); White Blood Cell Count 10.03 K/mm3 (4.00-11.30)
--- NOTE | 2021-01-18 06:49 | NUR ---
SHIFT SUMMARY PATIENT IS RESTING COMFORTABLY IN BED. BED IS IN LOW POSITION. CALL LIGHT IS IN REACH BUT DOES NOT USE IT. VITALS ARE STABLE. NG TUBE IS STILL IN PLACE AND PATIENT SUCTION WAS TURNED OFF AT 0213 DUE TO SCANT BLOOD AT THE TIP OF THE NG TUBE CLOSE TO THE NOSE. PATIENT IS STILL CONFUSED AND TRYING TO PULL ON HIS LINES SO RESTRAINTS ARE STILL IN PLACE. FOELY IS STIIL IN PLACE AND DRAINING VERY LITTLE URINE. PATIENT IS ON 3L NC SATURATING ABOVE 90%. NO COMPLAINTS OF PAIN. WILL CONTINUE TO MONITOR. REPORT WILL BE GIVEN TO DAY SHIFT RN.
[2021-01-18 06:53] LABS: Alanine Aminotransfer (ALT/SGP 14 U/L (12-78); Albumin, Blood 1.8 g/dL (3.4-5.0); Albumin/Globulin Ratio 0.5 (0.8-1.8); Alk Phos 85 U/L (50-136); Anion Gap 8 mmol/L (6-16); Aspartate Aminotrans (AST/SGOT 27 U/L (12-37); Blood Urea Nitrogen 15 mg/dL (8-24); Bun/Creatinine Ratio 16.1 (12.0-20.0); CO2, Blood 30 mmol/L (21-32); Calcium, Blood 7.6 mg/dL (8.5-10.1); Chloride, Blood 102 mmol/L (98-108); Creatinine, Blood 0.93 mg/dL (0.60-1.20); Globulin, Blood 3.3 g/dL (2.2-4.0); Glomerular Filtration Rate >60 (60-); Glucose, Blood 69 mg/dL (70-99); Potassium, Blood 3.8 mmol/L (3.5-5.5); Sodium, Blood 140 mmol/L (136-145); Total Protein, Blood 5.1 g/dL (6.4-8.2)
[2021-01-18 10:49] LABS: Hematocrit 27.9 % (37.0-53.0); Hemoglobin 9.3 g/dL (13.5-17.5); Mean Corpuscular HGB 32.4 pg (26.0-34.0); Mean Corpuscular HGB Conc 33.3 g/dL (31.5-36.5); Mean Corpuscular Volume 97 fL (80-100); Mean Platelet Volume 10.3 fL (9.1-12.4); Platelet Count 122 K/mm3 (150-400); RDW Coefficient Variation 20.4 % (11.7-14.2); RDW Standard Deviation 71.2 fL (35.1-46.3); Red Blood Cell Count 2.87 M/mm3 (4.30-5.90); White Blood Cell Count 10.56 K/mm3 (4.00-11.30)
[2021-01-18 11:17] LABS: Alanine Aminotransfer (ALT/SGP 16 U/L (12-78); Albumin, Blood 1.8 g/dL (3.4-5.0); Albumin/Globulin Ratio 0.5 (0.8-1.8); Alk Phos 88 U/L (50-136); Anion Gap 7 mmol/L (6-16); Aspartate Aminotrans (AST/SGOT 25 U/L (12-37); Bilirubin, Total 0.9 mg/dL (0.1-1.0); Blood Urea Nitrogen 15 mg/dL (8-24); Bun/Creatinine Ratio 15.9 (12.0-20.0); CO2, Blood 30 mmol/L (21-32); Calcium, Blood 7.4 mg/dL (8.5-10.1); Chloride, Blood 103 mmol/L (98-108); Creatinine, Blood 0.95 mg/dL (0.60-1.20); Globulin, Blood 3.4 g/dL (2.2-4.0); Glomerular Filtration Rate >60 (60-); Glucose, Blood 70 mg/dL (70-99); Potassium, Blood 3.8 mmol/L (3.5-5.5); Sodium, Blood 140 mmol/L (136-145); Total Protein, Blood 5.2 g/dL (6.4-8.2)
--- NOTE | 2021-01-18 18:16 | NUR ---
0700-Rec'd pt, alert to self only, confused, reoriented as needed. VSS, afebrile, remains NPO but per Dr. Fernandes Ice chips is fine. Left nares NG tube clamped and irrigated, position checked/verified. Pt's father called and spoke to pt and staff writer, his questions answered, no changes this shift.
[2021-01-19 05:50] LABS: Hemoglobin 8.8 g/dL (13.5-17.5); Mean Corpuscular HGB 32.1 pg (26.0-34.0); Mean Corpuscular HGB Conc 32.6 g/dL (31.5-36.5); Mean Corpuscular Volume 99 fL (80-100); Mean Platelet Volume 10.1 fL (9.1-12.4); Platelet Count 116 K/mm3 (150-400); RDW Coefficient Variation 20.1 % (11.7-14.2); Red Blood Cell Count 2.74 M/mm3 (4.30-5.90); White Blood Cell Count 11.38 K/mm3 (4.00-11.30)
[2021-01-19 06:10] LABS: Alanine Aminotransfer (ALT/SGP 13 U/L (12-78); Albumin, Blood 1.6 g/dL (3.4-5.0); Albumin/Globulin Ratio 0.5 (0.8-1.8); Alk Phos 81 U/L (50-136); Anion Gap 6 mmol/L (6-16); Aspartate Aminotrans (AST/SGOT 25 U/L (12-37); Bilirubin, Total 0.8 mg/dL (0.1-1.0); Blood Urea Nitrogen 16 mg/dL (8-24); Bun/Creatinine Ratio 20.9 (12.0-20.0); CO2, Blood 29 mmol/L (21-32); Calcium, Blood 7.2 mg/dL (8.5-10.1); Chloride, Blood 102 mmol/L (98-108); Creatinine, Blood 0.76 mg/dL (0.60-1.20); Globulin, Blood 3.4 g/dL (2.2-4.0); Glomerular Filtration Rate >60 (60-); Glucose, Blood 99 mg/dL (70-99); Potassium, Blood 3.3 mmol/L (3.5-5.5); Sodium, Blood 137 mmol/L (136-145)
--- NOTE | 2021-01-19 06:37 | NUR ---
SHIFT SUMMARY HANNA IS RESTING IN BED COMFORTABLY. BED IS IN LOW POSITION. CALL LIGHT IS IN REACH. VITALS ARE STABLE. PATIENT IS CONFUSED BUT HE IS TALKING MORE NOW. NG TUBE IS STILL IN PLACE BUT CLAMPED. HE IS ON 1L NC SATURATING ABOVE 90%. WHEN PATIENT WAS BEING CLEANED UP AND HIS RESTRAINTS WERE OFF HE TRIED TO PULL ON HIS NG TUBE. NO COMPLAINTS OF PAIN. WILL CONTINUE TO MONITOR. REPORT WILL BE GIVEN TO ISSAC YAP RN.
--- NOTE | 2021-01-19 09:25 | NUR ---
Pt resting in bed and is pleasantly confused. Pt is A&O to self and engages is non sensical conversation. Pt deneis pain and dyspnea at this time. Spoke with Dr Fernandes and discussed case. Pt slightly more alert today but remains significantly confused. Called and spoke with Pt's father Sukhi. Provided update and engaged in therapeutic conversation regarding planning for the future. Discussed the potential of Pt needing significant caregiver support pending improvements. Discussed the potential of needing to revisit goals of care if Pt does not improve or starts to decline. Offered therapeutic listening and answered questions. Sukhi is requesting that patient care technician instructor to call him tomorrow for assistance with determining VA assistance or placement. Sukhi expresses appreciation and reports no other concerns at this time. Spoke with Pt's Primary RN Roxanne and discussed case. Palliative Care will remain available.
--- NOTE | 2021-01-19 09:44 | NUR ---
AM NOTE ASSUMED CARE OF PATIENT AT APPROX 0700. PT ALERT, ORIENTED TO SELF ONLY; STATES HE IS IN [facility], DOES NOT KNOW DATE OR EVENT, FOLLOWING SOME DIRECTIONS. PT DENIES PAIN, CHEST PAIN/PRESSURE, NASUEA, DIZZINESS AND NUMBNESS AND TINGLING. PT RECEIVING CLINIMIX. NG TUBE IN PLACE, CLAMPED. RECEIVING IV ANTIBIOTICS. VSS. NO OTHER ACUTE CHANGES NOTED. WILL CONTINUE TO MONITOR.
--- NOTE | 2021-01-19 16:45 | NUR ---
SHIFT SUMMARY HEAD CT AND ADB XRAY COMPLETED, TOUCHED BASE WITH DR TY, NEW ORDER TO RESTART NG TUBE SUCTION TO LOW INTERMITTENT SUCTION. PT CONTINUES TO BE CONFUSED, NONSENSICAL AT TIMES. PT RECEIVING CLINIMIX, FOLIC ACID, THIAMINE AND POTASSIUM. PT CONTINUES WITH BILATERAL WRIST RESTRAINTS AND MITTS, PT CONTINUES TO ATTEMPTS TO PULL OUT NG TUBE. VSS. NO OTHER ACUTE CHANGES NOTED. WILL CONTINUE TO MONTIOR UNTIL REPROT GIVEN TO ONCOMING RN.
[2021-01-20 04:22] LABS: Hemoglobin 8.9 g/dL (13.5-17.5); Mean Corpuscular HGB 32.2 pg (26.0-34.0); Mean Corpuscular Volume 98 fL (80-100); Mean Platelet Volume 10.1 fL (9.1-12.4); Platelet Count 112 K/mm3 (150-400); RDW Coefficient Variation 20.2 % (11.7-14.2); RDW Standard Deviation 71.5 fL (35.1-46.3); Red Blood Cell Count 2.76 M/mm3 (4.30-5.90); White Blood Cell Count 11.16 K/mm3 (4.00-11.30)
[2021-01-20 04:40] LABS: Alanine Aminotransfer (ALT/SGP 14 U/L (12-78); Albumin, Blood 1.7 g/dL (3.4-5.0); Albumin/Globulin Ratio 0.5 (0.8-1.8); Alk Phos 73 U/L (50-136); Anion Gap 4 mmol/L (6-16); Aspartate Aminotrans (AST/SGOT 26 U/L (12-37); Bilirubin, Total 0.8 mg/dL (0.1-1.0); Blood Urea Nitrogen 20 mg/dL (8-24); Bun/Creatinine Ratio 28.5 (12.0-20.0); CO2, Blood 28 mmol/L (21-32); Calcium, Blood 7.1 mg/dL (8.5-10.1); Chloride, Blood 101 mmol/L (98-108); Globulin, Blood 3.5 g/dL (2.2-4.0); Glomerular Filtration Rate >60 (60-); Glucose, Blood 91 mg/dL (70-99); Potassium, Blood 3.3 mmol/L (3.5-5.5); Sodium, Blood 133 mmol/L (136-145); Total Protein, Blood 5.2 g/dL (6.4-8.2)
--- NOTE | 2021-01-20 06:30 | NUR ---
SHIFT SUMMARY PT ALERT TO ONLY SELF, CONFUSED; AT TIMES DOES NOT MAKE SENSE. DID NOT SLEEP MUCH T/O THE NIGHT. ON TELE NSR-80'S. ON 2L NC MAINTAINING O2 ABOVE 92%. NG TUBE IN PLACE TO LOW INTERMITTENT SUCTION. PT CONTINUES WITH BUE SOFT WRIST RESTRAINTS AND MITTS. TRIED TO REMOVE THE MITTS AND ONE RESTRAINT AND PT IMMEDIATELY TRIED TO PULL NG TUBE OUT; RESTRAINTS AND MITTS BACK IN PLACE. PT RECEIVED A BED BATH. HAS BRUSING ALL OVER, PREVENTATIVE FOAM ON COCCYX AREA; PINK IN COLOR. FOAM ON R. FOREARM FOR OLD SKINTEAR. PREVENTATIVE FOAM ON HIP AREA. VSS. NO ACUTE CHANGES. IN AM LABS POTASSIUM 3.3; HOSPITALIST MADE AWARE AND RECEIVED ORDERS. GRIER IN PLACE; URINE MCKENZIE COLOR URINE. PT IS NPO AND ON CONTINUOUS CLINIMIX PER ORDERS. FREQUENT CHECKS MADE, WITH 2Q REPOSITIONIG. BED IN LOWEST POSITION, CALL LIGHT W/I REACH AND BED ALARM ON. WILL CONT. WITH PLAN OF CARE.
--- NOTE | 2021-01-20 11:24 | NUR ---
Spiritual care visit conducted. Patient tells me about his recent heart attacks. He says that if he no one would care. I explore sources of value and worth with patient. Patient insists that I am an old friend of his from [place], [place]. I attempt to reorient patient to the hospital, it's location and my name and role but he continues to think that we are in a business meeting of some kind. I remain warm, kind and help provide a calming presence and security to him. He responds well and shows signs of increased peace.
--- NOTE | 2021-01-20 16:16 | NUR ---
Review of pt with nursing plan is stay the course for a few more days and monitor response. will follow up with family.
--- NOTE | 2021-01-20 17:24 | NUR ---
SHIFT SUMMARY ASSUMED CARE OF PATIENT AT APPROX 0700. PT RESTING IN BED. ALERT, ORIENTED TO SELF, OTHERWISE CONFUSED. STATES HE IS IN [place] OR [place] T/O SHIFT. PT DENIES PAIN, CHEST PAIN, SOB, NAUSEA, DIZZINESS AND NUMBNESS. PT ABD MODERATELY DISTENDER, BT HYPOACTIVE DURING SHIFT, NO BM DURING SHIFT. NG TUBE CONTINUE TO BE LOW INTERMITTENT SUCTION WITH LIGHT GREEN DRAINAGE. SPO2 >90% ON 2L O2 VIA NC, TITRATED TO 5L WITH ACTIVITY WITH PT THIS AFTERNOON. OTHER VSS. NO OTHER ACUTE CHANGES NOTED DURING SHIFT. WILL CONTINUE TO MONITOR UNTIL REPORT GIVEN TO COMING RN.
--- NOTE | 2021-01-20 17:37 | NUR ---
DR DOMÍNGUEZ TO BEDSIDE; PULLED BACK NG TUBE AND RE-TAPED AND CONTINUE WITH LOW INTERMITTENT SUCTION. WILL CONTINUE TO MONITOR.
[2021-01-21 06:16] LABS: Hematocrit 25.7 % (37.0-53.0); Hemoglobin 8.3 g/dL (13.5-17.5); Mean Corpuscular HGB 31.7 pg (26.0-34.0); Mean Corpuscular HGB Conc 32.3 g/dL (31.5-36.5); Mean Corpuscular Volume 98 fL (80-100); Mean Platelet Volume 10.2 fL (9.1-12.4); Platelet Count 132 K/mm3 (150-400); RDW Coefficient Variation 20.1 % (11.7-14.2); RDW Standard Deviation 71.4 fL (35.1-46.3); Red Blood Cell Count 2.62 M/mm3 (4.30-5.90); White Blood Cell Count 10.61 K/mm3 (4.00-11.30)
[2021-01-21 06:48] LABS: Alanine Aminotransfer (ALT/SGP 11 U/L (12-78); Albumin, Blood 1.6 g/dL (3.4-5.0); Albumin/Globulin Ratio 0.4 (0.8-1.8); Alk Phos 70 U/L (50-136); Anion Gap 6 mmol/L (6-16); Aspartate Aminotrans (AST/SGOT 20 U/L (12-37); Bilirubin, Total 0.6 mg/dL (0.1-1.0); Blood Urea Nitrogen 23 mg/dL (8-24); Bun/Creatinine Ratio 35.8 (12.0-20.0); CO2, Blood 26 mmol/L (21-32); Calcium, Blood 7.3 mg/dL (8.5-10.1); Chloride, Blood 100 mmol/L (98-108); Creatinine, Blood 0.64 mg/dL (0.60-1.20); Globulin, Blood 3.8 g/dL (2.2-4.0); Glomerular Filtration Rate >60 (60-); Glucose, Blood 89 mg/dL (70-99); Potassium, Blood 3.4 mmol/L (3.5-5.5); Sodium, Blood 132 mmol/L (136-145); Total Protein, Blood 5.4 g/dL (6.4-8.2)
--- NOTE | 2021-01-21 07:45 | NUR ---
SHIFT SUMMARY PT ALERT TO SELF ONLY AND CONFUSED. CONTINUES WITH BUE SOFT RESTRAINTS AND MITTONS; PT TRIES TO PULL NG TUBE WHEN TRIED TO REMOVE MITTONS. PT ON 2L NC MAINTAINING 02 ABOVE 92%. ON TELE NSR 80'S-90'S. PT DENIED CHEST PAIN/CHEST DISCOMFORT OR ANY PAIN. CONT. ON NG TUBE PER ORDERS. GRIER DRAINING YELLOW/ MCKENZIE CLEAR URINE. REPOSITINED Q2HRS WITH FREQUENT CHECKS. HAS FOAM ON BUTTOCK AREA, SKIN PINK WITH PREVENTATIVE FOAM ON SIDES. CONT. ON CLINIMIX PER ORDERS. VSS. PT BED IN LOWEST POSITION, CALL LIGHT W/IN REACH, AND BED ALARM ON. PT DID SLEEP T/O MOST OF THE NIGHT. REPORT GIVEN TO DAYSHIFT RN ASSUMING CARE AT BEDSIDE.
[2021-01-21 08:50] LABS: Magnesium, Blood 1.4 mg/dL (1.6-2.4)
[2021-01-21 08:57] LABS: Phosphorus, Blood 0.2 mg/dL (2.5-4.9)
--- NOTE | 2021-01-21 18:23 | NUR ---
SHIFT SUMMARY ASSUMED CARE OF PATIENT AT APPROX 0700. PT APPEARS TO SLEEPING INTERMITTENTLY T/O SHIFT. PT ALERT, ORIENTED TO SELF; UNABLE TO ANSWER QUESTIONS, NONSENSICAL AT TIMES. PT DENIES PAIN, CHEST PAIN, SOB, NASUEA, DIZZINESS AND NUMBNESS/TINGLING DURING SHIFT; NO ACUTE DISTRESS NOTED. CRITIAL PHOS AND LOW MAG NOTED; NOTIFIED DR TY THIS AM, NEW ORDERS ENTERED. PT RECEIVING IV POTASSIUM CHLORIDE, MAGNESIUM, AND POTASSIUM PHOS, ANTIBIOTICS, THIAMINE AND FOLIC ACID. NG TUBE IN PLACE, DR DOMÍNGUEZ TO BEDSIDE AND CLAMPED TUBE. NO BM DURING SHIFT. ABD CONTINUES TO BE DISTENDED AND FIRM. VSS. NO OTHER ACUTE CHANGES NOTED. WILL CONTINUE TO MONITOR UNTIL REPORT GIVEN TO ONCOMING RN.
[2021-01-22 04:07] LABS: Hematocrit 25.1 % (37.0-53.0); Hemoglobin 8.4 g/dL (13.5-17.5); Mean Corpuscular HGB 32.8 pg (26.0-34.0); Mean Corpuscular HGB Conc 33.5 g/dL (31.5-36.5); Mean Corpuscular Volume 98 fL (80-100); Mean Platelet Volume 9.7 fL (9.1-12.4); Platelet Count 143 K/mm3 (150-400); RDW Standard Deviation 72.5 fL (35.1-46.3); Red Blood Cell Count 2.56 M/mm3 (4.30-5.90); White Blood Cell Count 11.92 K/mm3 (4.00-11.30)
[2021-01-22 04:31] LABS: Alanine Aminotransfer (ALT/SGP 12 U/L (12-78); Albumin/Globulin Ratio 0.5 (0.8-1.8); Alk Phos 68 U/L (50-136); Anion Gap 7 mmol/L (6-16); Aspartate Aminotrans (AST/SGOT 23 U/L (12-37); Bilirubin, Total 0.7 mg/dL (0.1-1.0); Blood Urea Nitrogen 26 mg/dL (8-24); Bun/Creatinine Ratio 46.6 (12.0-20.0); CO2, Blood 24 mmol/L (21-32); Calcium, Blood 7.3 mg/dL (8.5-10.1); Chloride, Blood 98 mmol/L (98-108); Creatinine, Blood 0.56 mg/dL (0.60-1.20); Globulin, Blood 3.7 g/dL (2.2-4.0); Glomerular Filtration Rate >60 (60-); Glucose, Blood 83 mg/dL (70-99); Magnesium, Blood 1.4 mg/dL (1.6-2.4); Potassium, Blood 3.8 mmol/L (3.5-5.5); Sodium, Blood 129 mmol/L (136-145); Total Protein, Blood 5.7 g/dL (6.4-8.2)
[2021-01-22 04:33] LABS: Phosphorus, Blood 0.9 mg/dL (2.5-4.9)
--- NOTE | 2021-01-22 08:21 | NUR ---
SHIFT SUMMARY PT ALERT TO SELF ONLY, CONFUSED. ON 1-2L NC TO MAINTAIN O2 ABOVE 92%; LOW PERFUSION 02 CHECKED ON EAR LOBE. DID NOTE WHEEZING; HAS PRN BREATHING TREATMENT. ON TELE NSR 80'S-90'S. CONTINUES WITH BUE SOFT RESTRAINTS AND MITTONS; TRIED TO PULL NG TUBE, LINES. NG TUBE; CLAMPED DURING DAY SHIFT BY PROVIDER. PT NPO, CONT. CLINIMIX FOR NUTRITION. GRIER CATH IN PLACE; URINE MCKENZIE TO YELLOW IN COLOR. HOSPITALIST NOTIFIED FOR LOW URINE OUTPUT, EDEMA, SOB AND ORDERS GIVEN. ABD DISTENDED, FIRM. FREQUENT CHECKS WITH Q2 REPOSITIONING. HOSPITALIST AND CHARGE NURSE MADE AWARE OF CRITICAL LAB VALUE; HOSPITALIST DR. NELSON PUT ORDERS IN. HAS BRUSING FROM HX OF A FALL AND FOAM IN PLACE ON BUTTOCK AREA AND DAVID. VSS. RIGHT GROIN ACCESS AREA WEEPING; ABD PAD IN PLACE. BED IN LOW POSITION, BED ALARM ON, AND CALL LIGHT W/I REACH. GAVE DAY SHIFT NURSE REPORT AT BEDSIDE.
[2021-01-23 04:05] LABS: Hematocrit 24.3 % (37.0-53.0); Hemoglobin 7.8 g/dL (13.5-17.5); Mean Corpuscular HGB 31.7 pg (26.0-34.0); Mean Corpuscular HGB Conc 32.1 g/dL (31.5-36.5); Mean Corpuscular Volume 99 fL (80-100); Mean Platelet Volume 10.1 fL (9.1-12.4); Platelet Count 135 K/mm3 (150-400); RDW Coefficient Variation 19.9 % (11.7-14.2); RDW Standard Deviation 72.1 fL (35.1-46.3); Red Blood Cell Count 2.46 M/mm3 (4.30-5.90); White Blood Cell Count 10.99 K/mm3 (4.00-11.30)
[2021-01-23 04:23] LABS: Alanine Aminotransfer (ALT/SGP 11 U/L (12-78); Albumin, Blood 1.7 g/dL (3.4-5.0); Albumin/Globulin Ratio 0.5 (0.8-1.8); Alk Phos 63 U/L (50-136); Anion Gap 7 mmol/L (6-16); Aspartate Aminotrans (AST/SGOT 25 U/L (12-37); Bilirubin, Total 0.6 mg/dL (0.1-1.0); Blood Urea Nitrogen 31 mg/dL (8-24); Bun/Creatinine Ratio 54.1 (12.0-20.0); CO2, Blood 24 mmol/L (21-32); Calcium, Blood 7.2 mg/dL (8.5-10.1); Chloride, Blood 94 mmol/L (98-108); Creatinine, Blood 0.57 mg/dL (0.60-1.20); Globulin, Blood 3.6 g/dL (2.2-4.0); Glomerular Filtration Rate >60 (60-); Glucose, Blood 96 mg/dL (70-99); Phosphorus, Blood 2.2 mg/dL (2.5-4.9); Potassium, Blood 3.3 mmol/L (3.5-5.5); Sodium, Blood 125 mmol/L (136-145); Total Protein, Blood 5.3 g/dL (6.4-8.2)
--- NOTE | 2021-01-23 06:25 | NUR ---
PT STARTED SHIFT ON 3L O2 NC, MID SHIFT O2 SATURATION 85%, WHEEZING, ACCESSORY MUSCLE USE, RT ADMINISTERED NEB TREATMENT WITH SOME IMPROVEMENT, BUT PT STILL REQUIRING VENTI MASK 14L 55% TO MAINTAIN O2 SAT ABOVE 90%. DISSCUSSED WITH ONCCLIFFORD NGUYEN, ORDERS FOR LASIX 40MG IV , PT VOIDED 800ML, BUT FAILED ATTEMPTS TO WEAN DOWN O2. ORDER FOR CHEST XRAY AND CONTINUE VENTURI MASK TO MAINTAIN SAT ABOVE 90%. MD REVIEWED CXRAY, PLAN TO CONTINUE LASIX. PT CONTINUES IS CONFUSED, MANAGING TO REMOVE O2 AT VARIOUS POINTS THROUGHOUT SHIFT, CONTINUE RESTRAINTS, NO COMPLICATIONS.
[2021-01-23 11:50] LABS: SARS-Cov-2 (COVID-19) PCR, MMC NEGATIVE (NEGATIVE)
--- NOTE | 2021-01-23 15:25 | NUR ---
REC'D PATIENT THIS AM WITH PROGRESSIVE DECLINE IN STATUS. INCREASED WORK OF BREATHING, DECLINING BP'S, DESATURATIONS IN THE LOW 80'S DESPITE INCREASE IN O2 TO 15L. MD AND SUPPORT ARCHITECT MADE AWARE. INTEGRATING COMFORT CARE - IVFS, MEDS AND RESTRAINTS OFF. REC'D DOSAGE OF RICHAR PER MD'S ORDER. ORIENTATION REMAINS CONFUSED, SPEECH NOT COMPREHENSIVABLE AND GARBLED.
--- NOTE | 2021-01-23 16:15 | NUR ---
Spoke with nuclear medicine tech Gabe and discussed case. Pt showing signs of decline with B/P and respiratory status. Family may benefit from revisiting goals of care. Called and spoke with Pt's father Sukhi. Provided update and engaged in therapeutic discussion regarding goals of care. Discussed considering comfort care with Sukhi in agreement. Sukhi V/U of comfort care philosophy. Discussed consideration of home choice. Sukhi would like to consider homes at a later time. Offered therapeutic listening and answered questions. Sukhi expresses appreciaiton of call and reports no other concerns at this time. Pt resting in bed and is pleasantly confused. Agonal breathing noted. Pt engages in nonsensical conversation. Offered therapeutic voice and therapeutic listening. Ended visit to allow Pt to rest. Spoke with Dr Fernandes and discussed case. Placed comfort care order, comfort care order set, and D/C maintenance medicaitons per V/O from Dr Fernandes. Palliative Care will remain available for symptom management and supportive visits.
--- NOTE | 2021-01-23 18:05 | NUR ---
TOD: Pt was changed to CC status around 1540. Appears comfortable but does have agnal breathing. Pt heart rate showed decrease into 30's per tele around 1735. Pt has apnic periods up to 40 sec's. AARON Diaz stayed in room to be with patient. No heart beat noted and breathing stopped at 1800. TOD called by Emily WALKER, and AARON Ornelas at 1800. Physician, Nursing Sup and Pt. father notified. Father wants a Pt to be sent to home in [facility]. Body to be sent to [facility] initially and they will make arrangements. .
--- NOTE | 2021-01-23 20:55 | NUR ---
FINAL DC PT PASSED BEFORE SHIFT START. FAMILY/FRIENDS IN ROOM UPON SHIFT START. BELONGINGS WITH THEM. FINAL DISHARGE PAPERWORK FINISHED BY IRINA LANGE, AND THIS RN. ALYSSIA REY NOTIFIED. PATTY MAE FROM FACILITY TO ROOM TO SHORE MAN PATIENT AT 2009. PAPERWORK SIGNED BY REP. FACESHEET PROVIDED. NO ROOM IN THIS FACILITY TO KEEP BODY BEFORE [facility]OR LINE COULD CALL, [facility] ALERTED OF KELLY PHONE NUMBER TO COORDINATE THE REST OF [facility] RESPONSIBILITIES. NURSING GLASS TECHNICIAN MANINDER NOTIFED TO REVIEW FINAL DC.
== END 2021-01-23 20:10 | DRG 208 ==
LOC: ER 09:48 → ICUW 19:17 → PCU 19:17 → ICUW 19:48 → PCU 01-12 17:56
PROVIDERS: Emergency Medicine; Internal Medicine; Internal Medicine Critical Care Medicine; ADMIT Internal Medicine
PROC: 5A1935Z Respiratory Ventilation, Less than 24 Consecutive Hours (ICD-10-PCS; principal; 2021-01-10)
PROC: 5A12012 Performance of Cardiac Output, Single, Manual (ICD-10-PCS; 2021-01-10)
PROC: 0BH17EZ Insertion of Endotracheal Airway into Trachea, Via Natural or Artificial Opening (ICD-10-PCS; 2021-01-10)
PROC: 02HV33Z Insertion of Infusion Device into Superior Vena Cava, Percutaneous Approach (ICD-10-PCS; 2021-01-11)
PROC: 3E043XZ Introduction of Vasopressor into Central Vein, Percutaneous Approach (ICD-10-PCS; 2021-01-11)
PROC: 06H03DZ Insertion of Intraluminal Device into Inferior Vena Cava, Percutaneous Approach (ICD-10-PCS; 2021-01-16)
PROC: 3E0G76Z Introduction of Nutritional Substance into Upper GI, Via Natural or Artificial Opening (ICD-10-PCS; 2021-01-16)
PROC: B5191ZZ Fluoroscopy of Inferior Vena Cava using Low Osmolar Contrast (ICD-10-PCS; 2021-01-16)
PROC: 0W9G3ZZ Drainage of Peritoneal Cavity, Percutaneous Approach (ICD-10-PCS; 2021-01-16)
DX: I26.99 Other pulmonary embolism without acute cor pulmonale (principal); J96.01 Acute respiratory failure with hypoxia; G92.9 Unspecified toxic encephalopathy; E43 Unspecified severe protein-calorie malnutrition; Z66 Do not resuscitate; Z51.5 Encounter for palliative care; J81.0 Acute pulmonary edema; K76.6 Portal hypertension; I82.422 Acute embolism and thrombosis of left iliac vein; E87.2 Acidosis; Z68.1 Body mass index [BMI] 19.9 or less, adult; R57.9 Shock, unspecified; I67.89 Other cerebrovascular disease; M96.89 Other intraoperative and postprocedural complications and disorders of the musculoskeletal system; K56.0 Paralytic ileus; R64 Cachexia; Z20.822 Contact with and (suspected) exposure to COVID-19; R77.8 Other specified abnormalities of plasma proteins; K70.31 Alcoholic cirrhosis of liver with ascites; Z78.1 Physical restraint status; E88.09 Other disorders of plasma-protein metabolism, not elsewhere classified; E86.0 Dehydration; R62.7 Adult failure to thrive; I46.9 Cardiac arrest, cause unspecified; E87.6 Hypokalemia; N30.80 Other cystitis without hematuria; E83.42 Hypomagnesemia; D63.8 Anemia in other chronic diseases classified elsewhere; F10.20 Alcohol dependence, uncomplicated; B96.20 Unspecified Escherichia coli [E. coli] as the cause of diseases classified elsewhere; F41.9 Anxiety disorder, unspecified; I10 Essential (primary) hypertension; G89.29 Other chronic pain; M19.90 Unspecified osteoarthritis, unspecified site; Z96.642 Presence of left artificial hip joint; Z98.890 Other specified postprocedural states; Z91.09 Other allergy status, other than to drugs and biological substances; Z71.41 Alcohol abuse counseling and surveillance of alcoholic; Z79.899 Other long term (current) drug therapy; Y84.8 Other medical procedures as the cause of abnormal reaction of the patient, or of later complication, without mention of misadventure at the time of the procedure
CPT/HCPCS: 31500; 36415; 36430; 36569; 37191; 49083; 51702; 70450; 71045; 71260; 72192; 73552; 74018; 74176; 74177; 76937; 80048; 80053; 81001; 82040; 82042; 82140; 82550; 82607; 82728; 82746; 82803; 82947; 83540; 83550; 83615; 83690; 83735; 83880; 84100; 84132; 84439; 84443; 84484; 85014; 85018; 85025; 85027; 85610; 85730; 86022; 86850; 86900; 86901; 86923; 87070; 87077; 87086; 87186; 87205; 89051; 92950; 93005; 93010; 93306; 94002; 94003; 94640; 94760; 94762; 96361-59; 96365-59; 96366-59; 96367-59; 97110; 97162; 97166; 97530; 99152; 99153; 99285-25; A9270; C1751; C1769; C1880; C9113; G0480; J0461; J0610; J0696; J1630; J1644; J1650; J1940; J2250; J2405; J2543; J2704; J3010; J3411; J3475; J3480; J7030; J7042; J7050; J7060; J7120; P9016; P9041; P9046; Q9967; U0004